=== PATIENT | male | born 1960 | race Caucasian/White ===

== ENCOUNTER 2019-09-12 09:43 | Emergency (ER) | payer BC ==
[~2019-09-12] VITALS: Ht 167.6 cm; Wt 75.3 kg
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
[2019-09-12 10:45] VITALS: BP 115/63
[2019-09-12] MEDS ORDERED: DIPHTH,PERTUSS(ACELL),TET TOX 0.5 ML DISP.SYRIN. VAX IM ONE (10:45)
[2019-09-12] MEDS ORDERED: BACITRACIN TOPICAL OINT PACKET. TP ONE (10:45)
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
== END 2019-09-12 11:18 | disposition home or self-care (01) ==
LOC: ER 09:43
DX: S82.55XA Nondisplaced fracture of medial malleolus of left tibia, initial encounter for closed fracture (principal); S20.312A Abrasion of left front wall of thorax, initial encounter; M25.552 Pain in left hip; V09.9XXA Pedestrian injured in unspecified transport accident, initial encounter; Y93.01 Activity, walking, marching and hiking; Y92.488 Other paved roadways as the place of occurrence of the external cause; Y99.8 Other external cause status
CPT/HCPCS: 29515; 71045; 73502; 73610; 90471; 90715; 99285-25